=== PATIENT | male | born 1975 | race Hispanic/Latino ===

== ENCOUNTER 2017-09-08 23:07 | Emergency (ER) | payer BC ==
[2017-09-09] MEDS ORDERED: KETOROLAC TROMETHAMINE 60 MG/2 ML VIAL ONE (00:24)
[2017-09-09 00:25] LABS: APPEARANCE,URINE Clear (CLEAR); BILIRUBIN,URINE Negative (NEGATIVE); COLOR,URINE Yellow (YELLOW); GLUCOSE, URINE (UA) Negative (NEGATIVE); KETONES,URINE Negative (NEGATIVE); LEUKOCYTE ESTERASE ,URINE Negative (NEGATIVE); NITRATE,URINE Negative (NEGATIVE); OCCULT BLOOD,URINE Negative (NEGATIVE); PH,URINE 6.5 (5.0-8.0); PROTEIN,URINE Negative (NEGATIVE)
[2017-09-09 01:21] LABS: AMPHET/METH SCREEN,URINE NEGATIVE (NEGATIVE); BENZODIAZEPINES SCREEN,URINE NEGATIVE (NEGATIVE); CANNABINOID SCREEN,URINE NEGATIVE (NEGATIVE); COCAINE SCREEN,URINE NEGATIVE (NEGATIVE); OPIATE SCREEN,URINE NEGATIVE (NEGATIVE); PHENCYCLIDINE SCREEN,URINE NEGATIVE (NEGATIVE)
[2017-09-09 02:24] LABS: BARBITURATE SCREEN, URINE NEGATIVE (NEGATIVE)
== END 2017-09-09 02:12 | disposition home or self-care (01) ==
LOC: EDH 23:07
DX: N20.0 Calculus of kidney (principal); M54.5 Low back pain; Z72.0 Tobacco use
CPT/HCPCS: 72100; 72131; 80305; 81003; 96372; 99285; J1885

== ENCOUNTER 2020-03-02 11:34 | Emergency (ER) | payer BC ==
[2020-03-02] MEDS ORDERED: DiphenhydrAMINE HCL 50 MG/ML VIAL ONE (13:16)
[2020-03-02] MEDS ORDERED: ONDANSETRON ODT 4 MG TAB ONE (13:17)
[2020-03-02] MEDS ORDERED: KETOROLAC TROMETHAMINE 30MG/ML ONE (13:17)
[2020-03-02 13:41] LABS: AMPHET/METH SCREEN,URINE NEGATIVE (NEGATIVE); BARBITURATE SCREEN, URINE NEGATIVE (NEGATIVE); BENZODIAZEPINES SCREEN,URINE NEGATIVE (NEGATIVE); CANNABINOID SCREEN,URINE NEGATIVE (NEGATIVE); COCAINE SCREEN,URINE NEGATIVE (NEGATIVE); OPIATE SCREEN,URINE NEGATIVE (NEGATIVE); PHENCYCLIDINE SCREEN,URINE NEGATIVE (NEGATIVE)
== END 2020-03-02 13:55 | disposition home or self-care (01) ==
LOC: EDH 11:34
DX: R51.9 Headache, unspecified (principal); Z72.0 Tobacco use
CPT/HCPCS: 70450; 80305; 96372 ×2; 99284; J1200; J1885